=== PATIENT | male | born 1995 | race African-American/Black ===

== ENCOUNTER 2017-04-28 10:27 | Emergency (ER) | payer OTHER ==
[2017-04-28 10:38] VITALS: BP 120/69
--- NOTE | 2017-04-28 11:31 | Diagnostic Imaging Report ---
[facility] [address] [facility].[address] [id number] Report Submission Date: Apr 28, 2017 10:56:59 AM CDT Patient Study Name: YVES SHARPE Date: Apr 28, 2017 10:43:34 AM CDT Modality Type: CR Gender: M Description: UPPER EXTREMITY : 89 Institution: [facility] Physician: KOTA MORAN - [place] HISTORY: 21-year-old male with right hand pain after injury, laceration. COMPARISON: None available. TECHNIQUE: Three views of the right hand were performed. FINDINGS: There is a mildly displaced oblique fracture of the base of the third metacarpal bone. No other fractures are identified about the right hand. No radiopaque foreign bodies are identified in the soft tissues. IMPRESSION: Mildly displaced oblique fracture of the base of the right third metacarpal. Electronically signed on Apr 28, 2017 10:56:59 AM CDT by: Glenn MARTINO
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
== END 2017-04-28 11:45 | disposition home or self-care (01) ==
LOC: ED 10:27
DX: S60.221A Contusion of right hand, initial encounter (principal); X58.XXXA Exposure to other specified factors, initial encounter; Y93.9 Activity, unspecified; Y99.9 Unspecified external cause status
CPT/HCPCS: 73130; 99283